=== PATIENT | female | born 1955 | race Caucasian/White ===

== ENCOUNTER 2019-07-08 14:09 | Emergency (ER) | payer BC, OTHER ==
[2019-07-08] MEDS ORDERED: Fluorescein Opthalmic Strip ONE (14:43)
[2019-07-08] MEDS ORDERED: Proparacaine 0.5% Opth 15 ML BOT ONE (14:43)
[2019-07-08] MEDS ORDERED: Ketorolac Tromethamine 30 MG/ML VIAL ONE (15:00)
== END 2019-07-08 15:35 | disposition home or self-care (01) ==
LOC: ERS 14:09
DX: S01.152A Open bite of left eyelid and periocular area, initial encounter (principal); S01.551A Open bite of lip, initial encounter; S01.85XA Open bite of other part of head, initial encounter; S01.112A Laceration without foreign body of left eyelid and periocular area, initial encounter; S01.511A Laceration without foreign body of lip, initial encounter; S01.81XA Laceration without foreign body of other part of head, initial encounter; S05.12XA Contusion of eyeball and orbital tissues, left eye, initial encounter; S05.02XA Injury of conjunctiva and corneal abrasion without foreign body, left eye, initial encounter; E11.9 Type 2 diabetes mellitus without complications; I10 Essential (primary) hypertension; F41.9 Anxiety disorder, unspecified; F32.9 Major depressive disorder, single episode, unspecified; Z87.891 Personal history of nicotine dependence; W54.0XXA Bitten by dog, initial encounter
CPT/HCPCS: 96374; J1885

== ENCOUNTER 2021-07-18 08:39 | Outpatient (CLI) | payer MEDICARE | END 2021-07-18 08:40 | disposition home or self-care (01) | LOC: CT 08:39 | PROVIDERS: ATTEND Internal Medicine Gastroenterology | DX: R59.1 Generalized enlarged lymph nodes (principal); R91.8 Other nonspecific abnormal finding of lung field; J98.11 Atelectasis | CPT/HCPCS: 71260; 74177 ==

== ENCOUNTER 2022-06-09 09:30 | Outpatient (CLI) | payer MEDICARE | END 2022-06-09 09:31 | LOC: PET 09:30 | PROVIDERS: ATTEND Radiology Radiation Oncology | DX: C81.08 Nodular lymphocyte predominant Hodgkin lymphoma, lymph nodes of multiple sites (principal) | CPT/HCPCS: 78815; A9552 ==

== ENCOUNTER 2022-12-18 09:06 | Outpatient (CLI) | payer MEDICARE ==
[~2022-12-18 09:06] MED LIST: Iopamidol-370 76% 500 ML MDV (1 ML CHARGE) ONE
== END 2022-12-18 09:07 | disposition home or self-care (01) ==
LOC: BICCT 09:06
PROVIDERS: ATTEND Radiology Radiation Oncology
DX: C81.08 Nodular lymphocyte predominant Hodgkin lymphoma, lymph nodes of multiple sites (principal); R59.0 Localized enlarged lymph nodes
CPT/HCPCS: 71260; 74177; 82565; Q9967

== ENCOUNTER 2023-02-22 10:21 | Emergency (ER) | payer MEDICARE ==
[2023-02-22 11:08] LABS: #Eosinphils 0.1 thou/uL (0.0-0.7); #Monocytes 0.8 thou/uL (0.11-0.59); #Neutrophils 6.4 thou/uL (1.40-6.50); %Basophils 0.4 % (0.0-1.0); %Eosinophils 1.1 % (0.0-10.0); %Lymphocytes 11.7 % (21.0-51.0); %Monocytes 9.5 % (0.0-10.0); %Neutrophils 76.7 % (42.0-75.0); Hematocrit 35.8 % (36.0-47.0); Mean Corpuscular HGB CONC 33.5 g/dL (32.0-36.0); Mean Corpuscular Hemoglobin 31.2 pg (27.0-31.0); Mean Platelet Volume 10.2 fL (7.4-10.4); Platelet Count 240 10x3/uL (130-400); RBC Distribution Width 14.6 % (11.5-14.5); Red Blood Cell (RBC) Count 3.85 mill/uL (4.20-5.40); White Blood Cell (WBC) Count 8.4 10x3/uL (4.8-10.8)
[2023-02-22 11:45] LABS: ALT (SGPT) 26 U/L (8-55); AST (SGOT) 30 U/L (5-34); Albumin 4.7 g/dL (3.4-4.8); Alkaline Phosphatase 160 U/L (40-110); Anion Gap 19 mmol/L (10-20); BUN (Urea Nitrogen) 22 mg/dL (9.8-20.1); Bilirubin, Total 0.4 mg/dL (0.2-1.2); Calc. Creatinine Clearance 0 mL/min (70-130); Calcium 11.1 mg/dL (7.8-10.44); Carbon Dioxide 22 mmol/L (23-31); Chloride 101 mmol/L (98-107); Estimated GFR 56; Globulin 3.7 g/dL (2.4-3.5); Glucose 116 mg/dL (80-115); Lipase 30 U/L (8-78); Potassium 3.6 mmol/L (3.5-5.1); Protein, Total 8.4 g/dL (5.8-8.1); Sodium 138 mmol/L (136-145)
[2023-02-22 12:16] LABS: Bilirubin Negative (Negative); Blood, Urine Negative (Negative); CAUTI Indications for Culture Pelvic or flank pain; Clarity Clear (Clear); Glucose, Urine (Dipstick) Normal (Negative); Ketone, Urine Negative (Negative); Leukocyte Negative Leu/uL (Negative); Nitrite Negative (Negative); Protein, Urine (Dipstick) Negative (Neg-Trace); RBC/HPF 0-3 HPF (0-3); Specific Gravity, Urine 1.006 (1.002-1.036); Squamous Epithelial None Seen HPF (0-3); Urobilinogen Normal mg/dL (Less than 2); WBC/HPF 0-3 HPF (0-3)
[2023-02-22 12:19] LABS: Bacteria/HPF 1+ HPF (None Seen); Urine Culture Reflex No No
[2023-02-22] MEDS ORDERED: Ondansetron PF 4 MG/2 ML Vial ONE (15:47)
== END 2023-02-22 16:47 | disposition home or self-care (01) ==
LOC: ERS 10:21
DX: K59.00 Constipation, unspecified (principal); E11.9 Type 2 diabetes mellitus without complications; I10 Essential (primary) hypertension; Z87.891 Personal history of nicotine dependence
CPT/HCPCS: 74177; 80053; 81001; 83690; 85025; 93005; 96361; 96374; J2405; Q9967

== ENCOUNTER 2023-06-26 12:41 | Outpatient (CLI) | payer MEDICARE | END 2023-06-26 12:42 | disposition home or self-care (01) | LOC: CT 12:41 | PROVIDERS: ATTEND Radiology Radiation Oncology | DX: C81.08 Nodular lymphocyte predominant Hodgkin lymphoma, lymph nodes of multiple sites (principal); R59.0 Localized enlarged lymph nodes | CPT/HCPCS: 71250; 74177 ==

== ENCOUNTER 2024-12-22 10:05 | Outpatient (CLI) | payer MEDICARE | END 2024-12-22 10:06 | disposition home or self-care (01) | LOC: CT 10:05 | PROVIDERS: ATTEND Radiology Radiation Oncology | DX: C81.08 Nodular lymphocyte predominant Hodgkin lymphoma, lymph nodes of multiple sites (principal) | CPT/HCPCS: 71250; 74177 ==